=== PATIENT | male | born 1985 | race Caucasian/White ===

== ENCOUNTER 2019-09-13 21:50 | Emergency (ER) | payer OTHER, BC ==
[2019-09-13] MEDS ORDERED: Diazepam 5 MG Tab PO ONE (23:37)
[2019-09-13] MEDS ORDERED: Ketorolac 30 MG/ML SDV IM ONE (23:37)
--- NOTE | 2019-09-13 23:38 | EDM.PDOC ---
ED [facility] GENERAL MEDICAL PROBLEM - General Chief Complaint: Back Pain or Injury Stated Complaint: BACK PAIN Time Seen by Provider: 09/13/19 23:55 Source of Information: Reports: Patient History Limitations: Reports: No Limitations - History of Present Illness INITIAL COMMENTS - FREE TEXT/NARRATIVE: Patient is a 34-year-old male no significant past medical history presenting with a chief complaint of low back pain. Patient states the pain started yesterday while he was lifting a heavy drum weighing about 120 pounds. Patient' s his back feels tight and that he has some radiation of the pain back down both of his legs. The pain does not go past the knee. Patient reports no numbness or tingling of his groin. Patient has no urinary fecal incontinence. Patient states he has had back pain before but this is the worst ever been. 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 Patient denies any fevers, chills, nausea, vomiting. Patient did not take any medications prior to arrival other than ibuprofen with minimal improvement. Pmhx: None Pshx: None Family Hx: noncontributory Smoking history? no Etoh use? none Drug use? none In addition to that documented in the HPI above, the additional ROS was obtained : Constitutional: Denies fevers or chills Eyes: Denies vision changes ENMT: Denies sore throat CV: Denies chest pain Resp: Denies SOB GI: Denies vomiting or diarrhea : Denies painful urination MSK: Denies recent trauma Skin: Denies new rashes Neuro: Denies new numbness or tingling or weakness Endocrine: Denies unexpected weight loss Heme: Denies bleeding disorders I have reviewed the triage vital signs Const: Well nourished, well developed, appears stated age Eyes: PERRL, no conjunctival injection HENT: NCAT, Neck supple without meningismus CV: RRR, Warm, well-perfused extremities RESP: CTAB, Unlabored respiratory effort GI: soft, non-tender, non-distended, no masses MSK: No midline spinal tenderness. No gross deformities appreciated Skin: Warm, dry. No rashes Neuro: Alert, fitness sales consultant II-XII grossly intact. Sensation and motor function of extremities grossly intact. Psych: Appropriate mood and affect Assessment and plan: Patient is a 34-year-old male with a complaint of low back pain. Broad differential diagnosis considered including kidney stone, cauda equina, lumbar strain. Patient has no features of having a kidney stone and no history of it. it seems to make this cauda equina is also very unlikely given the patient's lack of positive symptoms that are associated with this. Patient is much more likely with possible herniated disc and nerve impingement leading to radicular symptoms. Patient's pain is slightly improved in the ER but educated the patient that low back pain is generally a prolonged course with 2 to 3 weeks required before full recovery is made. I recommend patient follow-up with a primary care physician to seek help with physical therapy and possible MRI as an outpatient. Gave the patient red flags and when to return to the emergency department. All questions dressed and answered. Patient agrees with plan. back Pain Score (Numeric/FACES): 10 - Related Data Allergies Allergy/AdvReac Type Severity Reaction Status Date / Time No Known Allergies Allergy Verified 09/13/19 22:18 Home Meds: Home Meds Cyclobenzaprine [Flexeril] 10 mg PO TID #30 tab 09/14/19 [Rx] Naproxen [Naprosyn] 375 mg PO BID #30 tab 09/14/19 [Rx] Past Medical History HEENT History: Reports: None Cardiovascular History: Reports: None Respiratory History: Reports: None Gastrointestinal History: Reports: None Genitourinary History: Reports: None Musculoskeletal History: Reports: None Neurological History: Reports: None Psychiatric History: Reports: None Endocrine/Metabolic History: Reports: None Hematologic History: Reports: None Immunologic History: Reports: None Oncologic (Cancer) History: Reports: None Dermatologic History: Reports: None - Infectious Disease History Infectious Disease History: Reports: Chicken Pox - Past Surgical History Head Surgeries/Procedures: Reports: None HEENT Surgical History: Reports: Oral Surgery GI Surgical History: Reports: Appendectomy Social & Family History - Family History Family Medical History: Noncontributory - Tobacco Use Smoking Status *Q: Never Smoker Second Hand Smoke Exposure: No - Caffeine Use Caffeine Use: Reports: None - Recreational Drug Use Recreational Drug Use: No ED ROS GENERAL - Review of Systems Review Of Systems: See Below ED EXAM,LOWER BACK PAIN/INJURY - Physical Exam Exam: See Below Course - Vital Signs Last Recorded V/S: Last Vital Signs Temp 36.2 C 03/29/20 01:25 Pulse 78 09/14/19 01:25 Resp 18 09/14/19 01:25 BP 128/78 09/14/19 01:25 Pulse Ox 98 09/14/19 01:25 - Orders/Labs/Meds Meds: Medications Discontinued Medications Generic Name Dose Route Start Last Admin Trade Name Valentin PRN Reason Stop Dose Admin Diazepam 5 mg 09/13/19 23:37 09/14/19 00:03 Valium. PO 09/13/19 23:38 5 mg ONETIME ONE Administration Ketorolac Tromethamine 30 mg 09/13/19 23:37 09/14/19 00:03 Toradol IM 09/13/19 23:38 30 mg ONETIME ONE Administration Oxycodone/Acetaminophen 1 tab 09/14/19 00:39 09/14/19 00:46 Percocet 325-5 Mg PO 09/14/19 00:40 1 tab ONETIME ONE Administration Departure - Departure Time of Disposition: 00:58 Disposition: Home, Self-Care 01 Clinical Impression: Back pain - Discharge Information Prescriptions: Cyclobenzaprine [Flexeril] 10 mg PO TID #30 tab Naproxen [Naprosyn] 375 mg PO BID #30 tab Instructions: Radicular Pain, Muscle Strain, [id number] Referrals: PCP,None [Primary Care Provider] - Forms: ED Department Discharge Additional Instructions: The following information is given to patients seen in the emergency department who are being discharged to home. This information is to outline your options for follow-up care. We provide all patients seen in our emergency department with a follow-up referral. The need for follow-up, as well as the timing and circumstances, are variable depending upon the specifics of your emergency department visit. If you don't have a primary care physician on staff, we will provide you with a referral. We always advise you to contact your personal physician following an emergency department visit to inform them of the circumstance of the visit and for follow-up with them and/or the need for any referrals to a consulting specialist. The emergency department will also refer you to a specialist when appropriate. This referral assures that you have the opportunity for follow-up care with a specialist. All of these measure are taken in an effort to provide you with optimal care, which includes your follow-up. Under all circumstances we always encourage you to contact your private physician who remains a resource for coordinating your care. When calling for follow-up care, please make the office aware that this follow-up is from your recent emergency room visit. If for any reason you are refused follow-up, please contact the [facility] Emergency Department at and asked to speak to the emergency department charge nurse. Sepsis Event Note - Evaluation Sepsis Screening Result: No Definite Risk - Focused Exam Vital Signs: Vital Signs Temp Pulse Resp BP Pulse Ox 09/14/19 01:25 36.2 C 78 18 128/78 98 09/13/19 22:14 36.2 C 80 18 138/91 H 100 Date Exam was Performed: 09/14/19 Time Exam was Performed: 02:37
[2019-09-14] MEDS ORDERED: Acetaminophen/oxyCODONE 325-5 MG Tab PO ONE (00:39)
[2019-09-14 01:41] VITALS: BP 128/78; PULSE 78
== END 2019-09-14 01:25 | disposition home or self-care (01) ==
LOC: MW.ED 21:50
DX: M54.5 Low back pain (principal)
CPT/HCPCS: 96372; 99283; A9270; J1885; 99282